=== PATIENT | female | born 1970 | race Caucasian/White ===

== ENCOUNTER 2017-12-21 21:11 | Emergency (ER) | payer SELFPAY ==
[2017-12-21 22:54] LABS: ADD MAN DIFF? NO
[2017-12-21 22:56] LABS: ABNORMAL IP MESSAGE 1; BASOPHILS % 0.4 % (0.0-2.0); EOSINOPHILS # 0.1 10^3/ul (0.0-0.5); EOSINOPHILS % 1.6 % (0.0-7.0); HEMATOCRIT 27.6 % (37.0-47.0); HEMOGLOBIN 7.6 g/dl (12.0-16.0); LYMPHOCYTES # 2.7 10^3/ul (0.8-2.9); LYMPHOCYTES % 38.7 % (15.0-51.0); MEAN CORPUSCULAR HGB CONC 27.5 g/dl (32.0-37.0); MEAN PLATELET VOLUME 10.2 fl (7.4-10.4); MONOCYTE # 0.8 10^3/ul (0.3-0.9); MONOCYTES % 12.1 % (0.0-11.0); NEUTROPHIL # 3.3 10^3/ul (1.6-7.5); NEUTROPHILS % 47.1 % (39.0-77.0); PLATELET COUNT 350 10^3/UL (140-415); RED CELL DISTRIBUTION WIDTH 31.8 % (11.5-14.5)
[2017-12-21 23:13] LABS: POSITIVE DIFF @See below
[2017-12-21 23:14] LABS: D-DIMER 1120.31 ng/ml (<460)
[2017-12-21 23:15] LABS: ANION GAP 16 (8-16); BLOOD UREA NITROGEN 16 mg/dl (7-20); CALCIUM 9.6 mg/dl (8.4-10.2); CARBON DIOXIDE 26 mmol/L (21-31); CHLORIDE 107 mmol/L (97-110); CREATININE 0.88 mg/dl (0.44-1.00); GLUCOSE 98 mg/dl (70-220); POTASSIUM 4.4 mmol/L (3.5-5.1); SODIUM 145 mmol/L (135-144)
[2017-12-21 23:26] LABS: B-TYPE NATRIURETIC PEPTIDE 44 PG/ML (0-125)
[2017-12-21 23:28] LABS: TROPONIN-I < 0.012 ng/ml (0.00-0.12)
[2017-12-21] MEDS: IOHEXOL 100 ML (23:58)
[2017-12-21] MEDS: SOD CHLORIDE 0.9% 100 ML (23:58)
[2017-12-22] MEDS: FENTAnyl 50 MCG/ML VIAL IV (01:14)
[2017-12-22] MEDS: LEVOFLOXACIN 750MG/D5W (PMX) 150 ML IVPB (03:29)
== END 2017-12-22 04:58 | disposition home or self-care (01) ==
LOC: E/R 12-22 04:58
DX: J18.1 Lobar pneumonia, unspecified organism (principal); R06.02 Shortness of breath; D50.9 Iron deficiency anemia, unspecified
CPT/HCPCS: 36415; 71045; 71275; 80048; 81025; 83880; 84484; 85025; 85378; 93005; 96374; 99285-25

== ENCOUNTER 2018-09-24 15:16 | Emergency (ER) | payer SELFPAY, OTHER | END 2018-09-24 17:05 | disposition home or self-care (01) | LOC: FTE 15:16 | DX: S16.1XXA Strain of muscle, fascia and tendon at neck level, initial encounter (principal); S29.002A Unspecified injury of muscle and tendon of back wall of thorax, initial encounter; V49.40XA Driver injured in collision with unspecified motor vehicles in traffic accident, initial encounter; Y92.9 Unspecified place or not applicable | CPT/HCPCS: 99283 ==